=== PATIENT | female | born 1960 | race Caucasian/White ===

== ENCOUNTER → 2017-12-03 | Outpatient (CLI) | payer OTHER ==
[~2017-12-03] MED LIST: IBUP-1050 PO
--- NOTE | 2017-12-03 09:14 | DIAGNOSTIC IMAGING REPORT ---
ABDOMEN COMPLETE (US) CLINICAL HISTORY: 56 years-old Female presenting with ABDOMEN AND PELVIC PAIN. TECHNIQUE: Real-time grayscale and limited color Doppler ultrasound imaging of the abdomen was performed. COMPARISON: None. FINDINGS: Pancreas: Visualized portions of the pancreatic head and body normal. Liver: Normal echogenicity and echotexture. The liver measures 14 cm in maximal sagittal dimension. No sonographic evidence of hepatic mass. Main portal vein patent with normal directional flow. Biliary: No intrahepatic biliary ductal dilatation. Common bile duct measures up to 5 mm in diameter. Gallbladder: No evidence of gallstones, gallbladder wall thickening, gallbladder distention, or pericholecystic fluid or inflammatory change. Spleen: Normal in echogenicity and size, measuring 8.3 cm in length. Kidneys: Normal in size and echogenicity. Right kidney measures 9.5 cm, and left kidney measures 9.1 cm. No hydronephrosis. Vasculature: Inferior vena cava patent the visualized portions. Abdominal aorta patent and normal in caliber colon Proximal aorta: Atherosclerosis. Transverse dimension 2.0 x 2.0 cm. Mid aorta: Atherosclerosis. Transverse dimension 1.6 x 1.6 cm. Distal aorta: Atherosclerosis. Transverse dimension 1.3 x 1.3 cm. Ascites: None. IMPRESSION: No sonographic evidence of intra-abdominal pathology. No cholelithiasis or biliary ductal dilatation. Electronically signed by: Marshall Espinoza M.D. 12/03/2017 9:13 AM Dictated Date/Time: 12/03/2017 9:10 AM
--- NOTE | 2017-12-03 09:32 | DIAGNOSTIC IMAGING REPORT ---
PELVIC COMPLETE NON OB CLINICAL HISTORY: 56 years-old Female presenting with pelvic pain, last menstrual period 4 years ago, , not on contraceptive, mild bloating. TECHNIQUE: Real-time grayscale and color and spectral Doppler ultrasound imaging of the pelvis was performed first using a transabdominal probe and subsequently transvaginal for better characterization. COMPARISON: None. FINDINGS: Uterus: Round hypoechoic mass at the uterine fundus measuring 1.9 x 1.9 x 2.1 cm most characteristic of a uterine fibroid. A slightly smaller more heterogeneous fibroid is also noted elsewhere the myometrium. These both appear intramural. Retroverted. The uterus measures 5.9 x 3.1 x 3.8 cm. Endometrial stripe measures 2 mm in thickness. Endometrium normal-appearing. Cervix normal. Right adnexa: Right ovary normal. Right ovary measures 2.2 x 1.0 x 1.5 cm. Normal color Doppler flow and arterial and venous waveforms within the ovarian parenchyma. Left adnexa: Left ovary normal. Left ovary measures 2.2 x 0.8 x 1.2 cm. Normal color Doppler flow and arterial and venous waveforms within the ovarian parenchyma. Other: No free fluid. IMPRESSION: 1. Two small uterine fibroids suggested. These appear intramural. 2. Normal endometrium. 3. No ovarian torsion. Electronically signed by: Marshall Espinoza M.D. 12/03/2017 9:31 AM Dictated Date/Time: 12/03/2017 9:28 AM
== END | disposition home or self-care (01) ==
LOC: C.ULTR 07:54
PROVIDERS: ATTEND Family Medicine
DX: R10.2 Pelvic and perineal pain (principal)

== ENCOUNTER → 2018-02-17 | Outpatient (CLI) | payer OTHER | END | disposition home or self-care (01) | LOC: C.LAB 08:39 | PROVIDERS: ATTEND Family Medicine | DX: R10.10 Upper abdominal pain, unspecified (principal) ==